=== PATIENT | male | born 1940 | race Caucasian/White ===

== ENCOUNTER 2021-04-11 11:06 | Outpatient (CLI) | payer MEDICARE, SELFPAY ==
--- NOTE | 2021-04-11 11:18 | XR_ITS ---
WS: [id number] LEFT HIP HISTORY: OSTEOARTHRITIS ,GENERALIZED, LEFT HIP PAIN COMPARISON: None available. LEFT hip: No acute fracture or dislocation. Moderate narrowing of the hip joint. Sclerosis along the superior acetabulum. Osteophyte extends laterally from the acetabulum. There is an adjacent osteophyt e extending into the soft tissue over the superior lateral LEFT femoral head which could be impinging upon the femoral head. XR/XR hip LT 2-3V wo/w pel* [id number] IMPRESSION: 1. No hip fracture. 2. Moderate osteoarthritis at the LEFT hip. Larger osteophyte from the lateral acetabulum could be impinging upon the femoral head.
== END 2021-04-11 11:07 | disposition home or self-care (01) ==
PROVIDERS: PCP Family Medicine; Visit Provider Clinical Nurse Specialist Adult Health
DX: M15.9 Polyosteoarthritis, unspecified (principal); M25.551 Pain in right hip
CPT/HCPCS: 73502

== ENCOUNTER → 2022-11-21 11:08 | Outpatient (BNVA) | payer MEDICARE, BC, SELFPAY | PROVIDERS: PCP Family Medicine; Visit Provider Family Medicine | DX: E78.5 Hyperlipidemia, unspecified (principal); N40.0 Benign prostatic hyperplasia without lower urinary tract symptoms; G50.0 Trigeminal neuralgia | CPT/HCPCS: 80053; 80061 ==

== ENCOUNTER → 2023-10-25 09:29 | Outpatient (BNVA) | payer MEDICARE, OTHER, SELFPAY | PROVIDERS: PCP Family Medicine; Visit Provider Family Medicine | DX: Z00.00 Encounter for general adult medical examination without abnormal findings (principal); G62.9 Polyneuropathy, unspecified; E03.9 Hypothyroidism, unspecified; E78.5 Hyperlipidemia, unspecified; I73.9 Peripheral vascular disease, unspecified; Z13.6 Encounter for screening for cardiovascular disorders | CPT/HCPCS: 80053; 80061; 82607; 84443; 85025 ==

== ENCOUNTER → 2023-11-19 14:18 | Outpatient (BNVA) | payer MEDICARE, OTHER, SELFPAY | PROVIDERS: PCP Family Medicine; Referring Provider Family Medicine; Visit Provider Thoracic Surgery (Cardiothoracic Vascular Surgery) | DX: I73.9 Peripheral vascular disease, unspecified (principal) | CPT/HCPCS: 99203 ==

== ENCOUNTER 2023-11-26 07:20 | Outpatient (CLI) | payer MEDICARE, OTHER, SELFPAY ==
--- NOTE | 2023-11-26 07:45 | USCV_ITS ---
Arvind Haseeb Age: 83 Gender: M : 1940 Exam Date: 11/26/2023 07:32 Ordering Phys: James Singh MD (Andy) ([email or web address] [email or web address] Technologist: BM [place] [facility] [place]: AAA Screening HISTORY: Diameter (cm) AP x Transverse x Length Velocity (cm/s) Waveform Prox Aorta: 1.21 x 1.52 x 126.40 Triphasic Mid Aorta: 1.36 x 1.38 x 154.40 Triphasic Distal Aorta: 1.24 x 1.37 x 233.60 Triphasic Right Iliac Prox: 0.86 x 1.19 x 105.90 Biphasic Left Iliac Prox: 0.95 x 1.09 x 99.60 Biphasic Stent Prox Landing x x Aneurysmal Sac Max x x Lt Lat Sac Dim Rt Lat Sac Dim Stent Dist Landing x x Right Iliac Stent x x Left Iliac Stent x x Right Renal Art Left Renal Art FINDINGS: CONCLUSIONS No evidence of abdominal aortic or bilateral iliac aneurysm. Moderate atheromatous plaque Jorge Meneses MD (Electronically Signed) Final Date: 26 November 2023 11:17 S
== END 2023-11-26 07:21 | disposition home or self-care (01) ==
LOC: RAD 07:21
PROVIDERS: PCP Family Medicine; Visit Provider Thoracic Surgery (Cardiothoracic Vascular Surgery)
DX: Z13.6 Encounter for screening for cardiovascular disorders (principal); I70.0 Atherosclerosis of aorta; Z82.49 Family history of ischemic heart disease and other diseases of the circulatory system
CPT/HCPCS: 76706

== ENCOUNTER 2024-03-05 08:32 | Outpatient (CLI) | payer MEDICARE, OTHER, SELFPAY ==
--- NOTE | 2024-03-05 | ECG_ITS ---
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
[2024-03-05 09:46] VITALS: BMI 27.3
--- NOTE | 2024-03-05 09:46 | NMCV_ITS ---
NM rodrigo perf SPECT r/s* [id number] Haseeb Samuels Age: 83 Gender: M : 1940 Exam Date: 03/05/2024 09:49 Ordering Phys: Bright Willoughby M.D ([email or web address]) Technologist: ANNA Duvall Exam Location: [facility] Indications: SOB STRESS TEST [facility] IMAGE PROTOCOL Rest/Stress 1 Exercise Day Radiopharmaceutical Dose (mCi) Administration Site Administered by Rest: Tc-99m 10.4 IV ANNA Duvall Sestamibi Stress:Tc-99m 32.9 IV ANNA Duvall Sestamibi Rest: 05-Mar-2024 60 Discovery 630 Stress: 05-Mar-2024 30 Discovery 630 Radiopharmaceutical was injected at 85 % maximum heart rate. Images obtained in supine and prone position. SPECT RESULTS Technical Quality: Good Raw Data Analysis: Normal Image Corrections: No attenuation or motion correction applied Summed Stress Score: 15 Summed Rest Score: 8 Summed Difference Score: 7 PERFUSION FINDINGS Large areas of mostly reversible perfusion defect noted in inferolateral and inferior bowser. This is consistent with small to medium sized area of prior infarct with large areas of francisco-infarct ischemia in inferior and inferolatral bowser. FUNCTIONAL RESULTS (calculated via Gated SPECT) Stress Image LV EF (%): 71 Stress EDV (mL):72 TID: 1.2 Stress ESV (mL):21 FUNCTIONAL FINDINGS: There is normal left ventricular systolic function. TID ratio is elevated. IMPRESSIONS 1. Abnormal myocardial perfusion imaging with small to medium sized area of prior infarct with large areas of francisco-infarct ischemia seen in inferior and inferolateral bowser. 2. LV systolic function is normal 3. TID ratio is elevated. This may represent multivessel coronary artery disease/subendocardial ischemia. Bright Willoughby MD (Electronically Signed) Final Date: 09 March 2024 19:49 S
[2024-03-05 10:47] VITALS: BP 141/68; PULSE 89
--- NOTE | 2024-03-05 12:00 | USCV_ITS ---
MauHaseeb lock Age: 83 Gender: M : 1940 Exam Date: 03/05/2024 08:47 Ordering Phys: Bright Willoughby M.D ([email or web address]) Technologist: Exam Location: [facility] [place] Indication: BP: 135 / 75 HR: 121 Rhythm: Sinus Technical Quality: Adequate MEASUREMENTS (Male / Female) Normal Values 2D ECHO LV Diastolic Diameter PLAX 4.3 cm 4.2 - 5.9 / 3.9 - 5.3 cm IVS Diastolic Thickness 1.1 cm 0.6 - 1.0 / 0.6 - 0.9 cm IVS Systolic Thickness 1.2 cm LVPW Diastolic Thickness 1.1 cm 0.6 - 1.0 / 0.6 - 0.9 cm LVPW Systolic Thickness 1.1 cm LVOT Diameter 2.1 cm LV Ejection Fraction 2D Teich 70.4 % LV Ejection Fraction MOD 2C 60.4 % LV Ejection Fraction 2C AL 60.5 % LA Diameter 4.3 cm RA Systolic Volume 4C AL 42.1 ml RA Systolic Volume 4C MOD 41.9 ml LA Sys Volume AL 68.8 cm cubed LA Sys Volume Index AL 35.0 cm cubed/m squared Aorta at Sinotubular Diameter 2.6 cm IVC Diameter 2.2 cm M-MODE LA Ao Ratio MM 1.2 AV Cusp Separation MM 2.0 cm DOPPLER AV Peak Velocity 132.0 cm/s LVOT Peak Velocity 103.0 cm/s AV Area Cont Eq vti 3.2 cm squared AV Area Cont Eq pk 2.7 cm squared MV Peak Velocity 109.0 cm/s MV Area PHT 3.8 cm squared Mitral E to A Ratio 0.6 PV Peak Velocity 107.0 cm/s FINDINGS Left Ventricle Normal left ventricular size, systolic function and wall thickness, with no regional wall motion abnormalities. Grade I/IV diastolic dysfunction (abnormal relaxation filling pattern), normal to mildly elevated filling pressures. Left ventricular ejection fraction is estimated at 65 %. Right Ventricle Normal right ventricular size and systolic function. Right Atrium The right atrium is normal in size. Left Atrium Mildly increased left atrial size. Mitral Valve Structurally normal mitral valve. Moderate mitral valve regurgitation. Aortic Valve Structurally normal trileaflet aortic valve. Mild aortic valve calcification. Aortic valve sclerosis without stenosis or regurgitation. Tricuspid Valve Structurally normal tricuspid valve. Pulmonic Valve Pulmonic valve not well visualized. Mild pulmonary valve regurgitation. Pericardium Normal pericardium without effusion. Aorta Normal ascending aorta dimension. IVC The inferior vena cava appears normal. CONCLUSIONS Normal left ventricular size, systolic function and wall thickness, with no regional wall motion abnormalities. Grade I/IV diastolic dysfunction (abnormal relaxation filling pattern), normal to mildly elevated filling pressures. Left ventricular ejection fraction is estimated at 65 %. Mildly increased left atrial size. Structurally normal mitral valve. Moderate mitral valve regurgitation. There are no prior echocardiogram studies to compare. Dr. Brendan Meier MD (Electronically Signed) Final Date: 05 March 2024 19:22 S
== END 2024-03-05 08:33 | disposition home or self-care (01) ==
LOC: CDL 08:33
PROVIDERS: PCP Family Medicine; Visit Provider Internal Medicine
DX: I50.30 Unspecified diastolic (congestive) heart failure (principal); I34.0 Nonrheumatic mitral (valve) insufficiency; R94.39 Abnormal result of other cardiovascular function study; R06.02 Shortness of breath
CPT/HCPCS: 36415; 78452; 93017; 93306; A9500

== ENCOUNTER 2024-03-20 09:16 | Observation (INO) | payer MEDICARE, OTHER, SELFPAY ==
[2024-03-20] VITALS (7 sets, daily range): BP systolic 133–157; BP diastolic 65–82; PULSE 62–84; RESP 14–20; TEMP 36.4–36.5; O2SAT 94–96; BMI 26.6
[2024-03-20] MEDS: diphenhydrAMINE 50 mg Capsule PO (06:15)
[2024-03-20] MEDS: aspirin 325 mg Tablet PO (06:15)
[2024-03-20 06:22] LABS: Basophils # 0.1 10^3/uL (0.0-0.1); Basophils % 0.7 %; Eosinophils # 0.4 10^3/uL (0.0-0.8); Eosinophils % 4.5 %; Hematocrit 40.6 % (37-53); Lymphocytes # 2.8 10^3/uL (0.8-4.8); Lymphocytes % 31.8 %; Mean Corpuscular HGB Conc 32.8 g/dL (30-55); Mean Corpuscular Volume 91.6 fl (82-101); Mean Platelet Volume 9.9 fL (7.4-10.4); Monocytes # 0.6 10^3/uL (0.2-0.9); Monocytes % 7.2 %; Neutrophils # 4.93 10^3/uL (1.8-7.7); Neutrophils % 55.2 %; Nucleated Red Blood Cells % 0 %; Platelet Count 183 10^3/cmm (157-399); Red Blood Count 4.43 10^6/uL (3.85-5.65); Red Cell Distribution Width 14.3 % (12.1-15.1); White Blood Count 8.92 10^3/uL (3.29-11.43)
[2024-03-20 06:38] LABS: Anion Gap 16.4 (5-19); Blood Urea Nitrogen 20 mg/dL (8-23); Carbon Dioxide 24 mmol/L (22-29); Chloride 106 mmol/L (98-107); Creatinine Clr Calc Pharmacy 55.6047; Glucose 140 mg/dL (65-115); Osmolality Calculated 299 mOsm/kg (285-295); Potassium 4.4 mmol/L (3.5-5.1); Sodium 142 mmol/L (136-145)
--- NOTE | 2024-03-20 07:00 | XACV_ITS ---
Exam Room: 2 Ht: 173 cm Wt: 79 kg BSA: 1.97 m2 Gender: Male : 1940 Any Known Allergies: No known allergies Exam Priority: Routine Procedure(s): Procedure Description: Diagnostic procedure Procedure Description: Left Heart Catheterization Procedure Description: Peripheral Cath Diagnostic Procedure Procedure Description: Abdominal aortic angiography Procedure Description: Coronary Angiography Diagnostic Cath Status: Elective Diagnostic Findings * INDICATION: 83 year man old with possibly history of hyperlipidemia who has been having worsening bilateral arm discomfort with exertion. Feels heavy and has to rest. Stress test is showing large area of francisco-infarct ischemia in inferior and inferolateral bowser. TID ratio is also elevated. Given these findings and worsening of symptoms, coronary angiogram with possible PCI. * Left Anterior Descending has diffuse moderate luminal irregularities. Proximal vessel has 40% stenosis. * Proximal Right Coronary Artery: subtotally occluded with left to right collaterals. * Proximal Circumflex to Mid Circumflex: severe 90% stenosis, RACHEL: 3 flow. Distal left circumflex artery after take off of OM 2 has 90% stenosis. * Coronary angiography shows co-dominance. * Left Main: significant 80% stenosis, RACHEL: 3 flow. Upper Extremity Diagnostic Findings Has significant 80% stenosis at junction of right brachial/axillary artery. Lower Extremity Diagnostic Findings Distal abdominal aorta is patent. Bilateral common, and external iliac arteries are patent. Patent common femoral arteries. Conclusions Severe multivessel coronary artery disease including ostial/proximal left main artery stenosis. Recommendations Referral to tertiary care facility for heart team discussion for CABG vs high risk intervention of left main artery and left circumflex artery. Pressures Phase:Rest AO : 146 / 60 ( 91 ) @ 8:47:00 AM 108 / 59 ( 81 ) @ 8:48:00 AM 147 / 63 ( 100 ) @ 8:55:00 AM 146 / 63 ( 99 ) @ 8:55:00 AM LV : 124 / 2 / 16 @ 8:55:00 AM 150 / -5 / 19 @ 8:55:00 AM Valves Phase:DefaultPhase AV : 2.0 @ 8:07:56 AM AV Mean Gradient: 0.0 @ 8:07:56 AM Hemodynamic Data Phase:Rest AO : 146.0 / 60.0 ( 91.0 ) @ 8:47:00 AM 108.0 / 59.0 ( 81.0 ) @ 8:48:00 AM 147.0 / 63.0 ( 100.0 ) @ 8:55:00 AM 146.0 / 63.0 ( 99.0 ) @ 8:55:00 AM Clinical Evaluation EBL: 5mL-10mL Procedural Details Pre-Procedure Time Out. Identified patient by full name and date of as verbalized by the patient/guarantor. Does the consent match the physician's order: Yes. Accurate & Complete Informed Consent: Yes. Inpatient/Outpatient History & Physical on Chart: Yes. If H&P is completed, is and addenduem needed: Yes; If yes, is the addendum complete: Yes. Visualize and Verify Site with Patient/Guarantor: N/A. Relevant Radiology Images available: Yes. Pre-op teaching completed and patient verbalized understanding. The risks, benefits, and alternatives of sedation and/or procedure were discussed by physician. The patient agrees to continue. Procedure started. Current Diagnosis : Chest Pain. HA Clinical Fraility Score: 3: Managing Well. Radiological Technician Indications: Worsening Angina. Chest Pain Symptom Assessment: Typical Angina Symptoms. Correct patient, site and procedure confirmed by cath team. Current diagnosis: Chest Pain. PERRLA. 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 Lungs clear x 5 lobes. IV Site on Arrival: 20 gauge in the left anticubital. IV Fluids: 0.9% NaCl at KVO. 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 Pre Procedural Pulses: bilateral dorsalis pedis was 2+. Pre Procedural Pulses: bilateral posterior tibial was Doppled. Pre Procedural Pulses: bilateral radial was 2+. Oxygen started at 2liters/min via nasal canula. right groin was prepped with chloroprep then draped in the usual sterile fashion. right radial was prepped with chloroprep then draped in the usual sterile fashion. Physician arrived. Baseline sample Acquired. HR: 70 BPM. Physician scrubbed in. Immediate Pre-Procedure Time Out. Correct Patient: Yes; Correct Procedure: Yes; Correct Site: Yes; Correct Patient Position: Yes; Correct Supplies: Yes; Dried Flammable Prep: Yes; Blood Products Available: N/A;. Lidocaine 1% infiltrated to the right radial. Arterial access obtained. A 5 new zealander TIG catheter in over wire. Wire removed. Contrast hand injected through the catheter. Catheter removed over the standard wire. Lidocaine 1% infiltrated to the right groin. Arterial access obtained with micropuncture set. A 5 new zealander JL4 catheter in over wire. Multiple views taken of left coronary artery. Catheter removed over the standard wire. A 5 new zealander JR4 catheter in over wire. EDP Sample taken: LV 124/2,16; HR: 76 BPM; SpO2: 97%. Pullback taken: LV 150/-6,19; AO 147/63(100); Mean: 0mmHg, Peak to Peak: 2mmHg, SEP: 7sec/min; HR: 70 BPM; SpO2: 97%. Multiple views taken of right coronary artery. Catheter removed over the standard wire. A 5 new zealander Angled Pig catheter in over wire. Abdominal aortogram performed in AP @ 10 mL/sec for a total of 30 mL. Catheter removed over the standard wire. A Right femoral angiogram was performed to determine safe placement of closure device. A TR Band was successful obtaining hemostatsis at the Right Radial artery insertion site. A Mynx was successful obtaining hemostatsis at the Right Femoral artery insertion site. Post Procedure: Pulses reassessed and unchanged. PERRLA. 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 No VTE prophylaxis required. Medication's Wasted: Other = Fentanyl 50 mcg. Medication's Wasted: Heparin = 1000 units. Medication's Wasted: Nitro = 49.8 mcg. Medication's Wasted: Lidocaine 1% = 8 mL. Total IV fluids: 50 mL. Post-op diagnosis: CAD. Complications: None. Estimated blood loss: 5mL-10mL. Responsiveness - Normal response to verbal stimuli; alert and oriented, PERRLA. Vital chart was stopped. Airway - Unaffected, no intervention required; spontaneous ventilation. Circulation: W/N/L, pulses unchanged. Nausea/Vomiting: No. Procedure completed. Patient transferred by bed to CPRU. Access Site Site: Right Radial artery Sheath Size: 6 Fr Hemostasis Method: TR Band Hemostasis Success: Successful Site: Right Femoral artery Sheath Size: 6 Fr Hemostasis Method: Mynx Hemostasis Success: Successful Procedure Medications Start: 7:27 AM Stop: 7:27 AM Medication: Versed Amount: 1 mg Route: I.V. Start: 7:27 AM Stop: 7:27 AM Medication: Fentanyl Amount: 50 mcg Route: I.V. Start: 7:36 AM Stop: 7:36 AM Medication: Nitrogylcerin Amount: 200 mcg Route: I.A. Start: 7:59 AM Stop: 7:59 AM Medication: Versed Amount: 1 mg Route: I.V. I, the attending physician, have reviewed and verified all procedure medications. Yes, all medications given per verbal order History/Risk Factors Hypertension: No Dyslipidemia: Yes Peripheral Arterial Disease (PAD): No Myocardial Infarction (TN): No Obesity: No Tobacco Use: Former Prior Interventions PCI: No CABG: No Valve Surgery: No Report Signatures Finalized by Bright Willoughby MD on 04/02/2024 05:11 PM
--- NOTE | 2024-03-20 07:26 | P.HP_ITS ---
Same Day Surgery H&P Indication for Procedure/HPI DATE OF PROCEDURE: March 20, 2024 CHIEF COMPLAINT/INDICATIONFOR SURGICAL PROCEDURE: New onset CCS class 2-3 angina/abnormal stress test PREOP DIAGNOSIS: New onset CCS Class 2/3 angina/ abnormal stress test PLANNED PROCEDURE: Operation Date: 03/20/24 07:00 Proposed Procedures p Cardiac Catheterization - [facility] w/wo LV & Coros(Left) - Bright Willoughby M.D Possible percutaneous coronary intervention 83 year man old with possibly history of hyperlipidemia who has been having w orsening bilateral arm discomfort with exertion. Feels heavy and has to rest. Stress test is showing large area of francisco-infarct ischemia in inferior and inferolateral bowser. TID ratio is also elevated. Given these findings and worsening of symptoms, coronary angiogram with possible PCI. Medications/Allergies* Home Medications Medication Instructions Recorded Confirmed Type aspirin 81 mg tablet,delayed 81 mg PO DAILY 03/19/24 03/19/24 History release Allergies/Adverse Reactions Allergy/AdvReac Type Severity Reaction Status Date / Time No Known Allergies Allergy Verified 03/19/24 11:20 Current Medications: Generic Name Dose Route Start Last Admin Trade Name Freq PRN Reason Stop Dose Admin Sodium Chloride 1,000 mls @ 50 mls/hr 03/20/24 06:00 03/20/24 06:28 Sodium Chloride 0.9% IV 03/21/24 01:59 Not Given .Q20H ONE Pertinent History/Comorbid Conditions* Family History (Updated 11/19/23 @ 15:29 by Kathy Ballard LPN) CAD (coronary artery disease) Mother Sister Cancer Father Denies family history of Diabetes Social History Smoking and tobacco/nicotine status: former use of tobacco/nicotine Quit status (tobacco/nicotine): has quit using Year quit tobacco: 1973 Alcohol intake: never Substance/Drug Use: never Pertinent Exam Findings alert, oriented x 3, clear to auscultation bilaterally and regular rate & rhythm Conscious Sedation Assessment PATIENT ASSESSED PRIOR TO SEDATION, WITH NO CHANGE NOTED: Yes AIRWAY EVAL/ANESTHESIA PLAN: normal airway, ASA III, Local Anesthesia, Risks, benefits & alternatives of sedation and/or procedure discussed and Patient agrees to continue as planned ADDITIONAL INFORMATION: Moderate sedation Recommendations Surgery/Procedure today (Left heart cath with possible percuteneous coronary intervention) Coding Level of Care Code Acute Code for Chg Fwd
--- NOTE | 2024-03-20 09:28 | PC.NURSE ---
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
--- NOTE | 2024-03-20 13:24 | PC.NURSE ---
Patient's right radial TR-band, air is removed as follows: 2ml's at 1035, 2ml's at 1110, 2ml's at 1125, 2ml's at 1155, 2ml's at 1230, 2ml's at 1245, 2ml's at 1319. TR-band is removed at 1335. A dressing of 2x2 and tegaderm is applied. No hematoma noted. Patient tolerated well.
== END 2024-03-20 15:13 | disposition home or self-care (01) ==
LOC: CSU 09:16
PROVIDERS: Admitting Provider Internal Medicine; PCP Family Medicine; Visit Provider Internal Medicine
DX: I25.10 Atherosclerotic heart disease of native coronary artery without angina pectoris (principal); E78.5 Hyperlipidemia, unspecified; Z87.891 Personal history of nicotine dependence; Z79.82 Long term (current) use of aspirin; Z82.49 Family history of ischemic heart disease and other diseases of the circulatory system
CPT/HCPCS: 36415; 75625; 80048; 85025; 93458; 96374; 96375; 99152; 99153; C1760; C1769; C1887; C1894; G0269; G0378; J1644; J2250; J3010; J3490; J7030; Q0163; Q9967

== ENCOUNTER 2024-05-12 13:55 | Outpatient (CLI) | payer MEDICARE, OTHER, SELFPAY ==
[2024-05-12 15:00] LABS: Anion Gap 14.5 (5-19); Blood Urea Nitrogen 20 mg/dL (8-23); Calcium 8.6 mg/dL (8.5-10.5); Carbon Dioxide 25 mmol/L (22-29); Chloride 103 mmol/L (98-107); Glucose 118 mg/dL (65-115); Osmolality Calculated 290 mOsm/kg (285-295); Potassium 4.5 mmol/L (3.5-5.1); Sodium 138 mmol/L (136-145)
== END 2024-05-12 13:56 | disposition home or self-care (01) ==
LOC: LAB 13:56
PROVIDERS: PCP Family Medicine; Visit Provider Family Medicine
DX: I25.10 Atherosclerotic heart disease of native coronary artery without angina pectoris (principal)
CPT/HCPCS: 80048

== ENCOUNTER → 2024-05-26 12:56 | Outpatient (BNVA) | payer MEDICARE, OTHER, SELFPAY | PROVIDERS: PCP Family Medicine; Visit Provider Family Medicine | DX: N28.9 Disorder of kidney and ureter, unspecified (principal) | CPT/HCPCS: 80048 ==

== ENCOUNTER → 2024-06-30 10:07 | Outpatient (BNVA) | payer MEDICARE, OTHER, SELFPAY | PROVIDERS: PCP Family Medicine; Visit Provider Podiatrist Foot & Ankle Surgery | DX: I73.9 Peripheral vascular disease, unspecified (principal); M21.611 Bunion of right foot; M21.621 Bunionette of right foot | CPT/HCPCS: 99203 ==

== ENCOUNTER → 2024-08-12 14:59 | Outpatient (BNVA) | payer MEDICARE, OTHER, SELFPAY | PROVIDERS: PCP Family Medicine; Visit Provider Family Medicine | DX: I25.10 Atherosclerotic heart disease of native coronary artery without angina pectoris (principal); E55.9 Vitamin D deficiency, unspecified; I73.9 Peripheral vascular disease, unspecified; E78.5 Hyperlipidemia, unspecified; N19 Unspecified kidney failure; G62.9 Polyneuropathy, unspecified; R53.1 Weakness; E03.9 Hypothyroidism, unspecified | CPT/HCPCS: 80053; 80061; 82607; 82652; 84443; 85025 ==

== ENCOUNTER 2024-08-30 22:44 | Emergency (ER) | payer MEDICARE, OTHER, SELFPAY ==
[2024-08-30 22:52] VITALS: BP 180/59; PULSE 67; RESP 18; TEMP 36.7; O2SAT 97; BMI 25.4
--- NOTE | 2024-08-30 23:01 | CTR_ITS ---
PROCEDURE INFORMATION: Exam: CT Head Without Contrast Exam date and time: 08/30/2024 11:12 PM Age: 83 years old Clinical indication: Injury or trauma; Blunt trauma (contusions or hematomas); Patient HX: Patient has sustained two falls in the last three days. Contusion to RT orbit with hematoma to occipital. Anticoagulated. TECHNIQUE: Imaging protocol: Computed tomography of the head without contrast. Radiation optimization: All CT scans at this facility use at least one of these dose optimization techniques: automated exposure control; mA and/or kV adjustment per patient size (includes targeted exams where dose is matched to clinical indication); or iterative reconstruction. COMPARISON: No relevant prior studies available. RADIATION DOSE METRICS: Total DLP (mGy-cm): 1037.31 FINDINGS: Brain: Thin subdural hematoma along the left tentorial leaflet measuring up to 4 mm. Underlying brain parenchymal atrophy. No additional areas of intracranial hemorrhage. Mass effect or midline shift. Sequela of chronic microvascular changes involving the white matter. No midline shift. Cerebral ventricles: No ventriculomegaly. Paranasal sinuses: Visualized sinuses are unremarkable. No fluid levels. Mastoid air cells: Visualized mastoid air cells are well aerated. Bones: No underlying linear or depressed skull fracture. Soft tissues: Posterior scalp hematoma. CT/CT head wo con* [id number] IMPRESSION: Thin subdural hematoma along the left tentorial leaflet.
--- NOTE | 2024-08-30 23:08 | CTR_ITS ---
PROCEDURE INFORMATION: Exam: CT Maxillofacial Without Contrast Exam date and time: 08/30/2024 11:15 PM Age: 83 years old Clinical indication: Injury or trauma; Blunt trauma (contusions or hematomas); Orbit/periorbital; Right; Patient HX: Patient has sustained two falls in the last three days. Contusion to RT orbit with hematoma to occipital. Anticoagulated. TECHNIQUE: Imaging protocol: Computed tomography of the face without contrast. Radiation optimization: All CT scans at this facility use at least one of these dose optimization techniques: automated exposure control; mA and/or kV adjustment per patient size (includes targeted exams where dose is matched to clinical indication); or iterative reconstruction. COMPARISON: CT head wo con* [id number] 08/30/2024 11:12 PM RADIATION DOSE METRICS: Total DLP (mGy-cm): 543.2 FINDINGS: Paranasal sinuses: No air-fluid levels. Orbital cavities: Intraorbital injury. Teeth: The patient has dentures. Mild right periorbital soft tissue swelling. Bones: No acute displaced maxillofacial bone fractures. Soft tissues: See Teeth finding. CT/CT facial bones wo con* [id number] IMPRESSION: No acute maxillofacial bone fractures.
--- NOTE | 2024-08-30 23:58 | ED_ITS ---
Documented by User: MICHAEL Reyna 08/31/24 01:09 HPI - Fall 2 General: Chief Complaint: Fall Stated Complaint: fall face /head injury Time Seen by Provider: 08/30/24 23:00 History of Present Illness: Patient is an 83-year-old man that presents to the emergency department with complaints of occipital head pain after fall from standing. Patient reports he had 2 falls in the last several days. he was entering his laundry room when he tripped on a step falling forward and striking his right forehead/brow on the ground. He denies loss of consciousness. As a result he has developed periorbital ecchymosis. Today he was walking in to the laundry room and turned and lost his footing. He fell backwards striking his head. Again no loss of consciousness and denies feeling dazed. He is on dual antiplatelet therapy?aspirin and Plavix. Patient has significant cardiac history. He also has a history of hypothyroidism, hypertension, hyperlipidemia, BPH and GERD. Related Data Home Medications Medication Instructions Recorded Confirmed aspirin 81 mg tablet,delayed 81 mg PO DAILY 03/19/24 06/30/24 release Previous Rx's Medication Instructions Recorded tamsulosin 0.4 mg capsule 0.4 mg PO DAILY #1 cap 11/21/22 metoprolol tartrate 25 mg tablet 25 mg PO BID #120 tabs 03/20/24 levofloxacin 500 mg tablet 500 mg PO DAILY #7 tabs 05/09/24 atorvastatin 40 mg tablet See Rx Instructions .Route 05/13/24 .COMPLEX #1 tab clopidogrel 75 mg tablet 75 mg PO DAILY #1 tab 05/13/24 docusate sodium 100 mg capsule 100 mg PO BID #1 cap 05/13/24 (Dulcolax Stool Softener (docusate)) ondansetron HCl 4 mg tablet 4 mg PO Q6H PRN nausea and 05/13/24 vomiting #1 tab pantoprazole 40 mg tablet,delayed 40 mg PO DAILY #1 tab 05/13/24 release amiodarone 200 mg tablet 200 mg PO DAILY #1 tab 05/26/24 Allergies Allergy/AdvReac Type Severity Reaction Status Date / Time No Known Allergies Allergy Verified 08/12/24 14:11 Review of Systems 2 General: Reports: 10 or more systems reviewed and unremarkable except in HPI and below PFSH ED 2 PFSH: Family History Mother CAD (coronary artery disease) Sister CAD (coronary artery disease) Father Cancer Denies family history of Diabetes Social History Smoking and tobacco/nicotine status: former use of tobacco/nicotine Quit status (tobacco/nicotine): has quit using Year quit tobacco: 1973 Alcohol intake: never Substance/Drug Use: never Physical Exam 2 Const: COMMON NORMALS: no acute distress, patient oriented x3 and alert G ENERAL APPEARANCE: cooperative ORIENTATION/CONSCIOUSNESS: Yes awake, Yes oriented to person, Yes oriented to place and Yes oriented to time HENMT: COMMON NORMALS: normocephalic and atraumatic HEAD & SCALP: n ormocephalic and atraumatic HEAD IMAGES: 1. Abrasion contusion 2. Periorbital ecchymosis 3. scalp wound. FACE & SINUS: normal facial exam MOUTH: Normal oral and palatal mucosa present THROAT: posterior oropharynx normal Eye: COMMON NORMALS: Equal, round and reactive pupils present, EOMs intact bilaterally, conjunctivae normal and no scleral icterus GENERAL EYE: a ppearance normal, both eyes and all related structures ALIGNMENT: Yes alignment normal PERIORBITAL: periorbital findings abnormal positive right periorbital swelling, periorbital tenderness and periorbital ecchymosis C ONJUNCTIVA: Yes conjunctivae normal PUPIL: Yes Equal, round and reactive pupils present Neck/C-Spine: COMMON NORMALS: full ROM GENERAL: Yes normal visual inspection OTHER: Nontender to palpation along the midline cervical spine or trapezius into the shoulders. Denies numbness or tingling in upper extremities Denies pain in upper extremities. He has generalized but no focal weakness in upper extremities. 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 Lymph: LYMPHATIC: no lymphadenopathy noted Chest: COMMONS NORMALS: normal inspection of the chest Breast/axilla inspection: Yes no chest deformity, asymmetry, normal contours, no nodules, masses, tenderness Resp: COMMON NORMALS: normal respiratory effort, No retractions and No use of accessory muscles EFFORT & INSPECTION: Yes able to speak in complete sentences and Yes symmetric chest movement Cardio: COMMON NORMALS: regular rate and Peripheral pulses 2+ throughout R ATE: regular rate PERIPHERAL PULSES: Peripheral pulses 2+ throughout Back/Pelvis: COMMON NORMALS: thoracic and lumbar spine normal to inspection, no thoracic nor lumbar tenderness, thoraco-lumbar ROM normal and straight leg raise negative bilaterally Extremity: COMMON NORMALS: normal to inspection GENERAL: Yes normal exam except as noted Neuro: COMMON NORMALS: patient oriented x3 SENSORIUM/ORIENTATION: Yes alert, Yes oriented to person, Yes oriented to place and Yes oriented to time CRANIAL NERVES: Yes CN normal except as noted Psych: COMMON NORMALS: mental status grossly normal, Normal thought process present, cooperative, activity/motor behavior normal, denies homicidal ideation and denies suicidal ideation THOUGHT PROCESS: Normal thought process present Skin: COMMON NORMALS: no rashes or lesions noted and turgor normal GENERAL SKIN EXAM: no rashes or lesions noted and turgor normal Course 2 Vital Signs: Vital signs: Vital Signs Temperature 98.1 F 08/30/24 22:52 Pulse Rate 62 08/31/24 00:41 Respiratory Rate 18 08/31/24 00:41 Blood Pressure 178/59 08/31/24 00:41 Pulse Oximetry 95 08/31/24 00:41 Oxygen Delivery Me thod Room Air 08/31/24 00:41 MDM - Fall Medical Decision Making Patient is a 83-year-old man that presents to the emergency department with 2 falls. 1 night in which he struck his right brow on the ground. The other tonight when he lost his footing and fell backwards striking the back of his head on the step. Patient underwent CT imaging of his face and head. Imaging of his head reveals a thin left tentorial subdural hematoma. CT facial bones negative. His wound was explored but found to be superficial abrasions. He does have a hematoma to the back of his head as well as periorbital ecchymosis and abrasions to his right brow. Patient has preference for [facility] facility. I have transitioned care to Dr. Mera for transfer. Lab Data Radiology Impressions Head CT 08/30/24 23:01 IMPRESSION: Thin subdural hematoma along the left tentorial leaflet. ADDENDUM: 08/31/24 0015 THIS REPORT CONTAINS FINDINGS THAT MAY BE CRITICAL TO PATIENT CARE. The findings were verbally communicated via telephone conference with Magdiel Mera at 12:14 AM [employer] on 08/31/2024. The findings were acknowledged and understood. Face CT 08/30/24 23:08 IMPRESSION: No acute maxillofacial bone fractures. All radiology interpretation(s) finalized by discharge Discharge Plan Discharge Patient Disposition: Xfer Short-Term Hosp Clinical Impression: Acute subdural hematoma, Contusion of face Traumatic intracranial subdural hematoma Qualifiers: Encounter type: initial encounter Loss of consciousness presence/duration: w ithout LOC Qualified Code(s): S06.5X0A - Traumatic subdural hemorrhage without loss of consciousness, initial encounter Condition: Stable Referrals: Gino Gutierrez DO [Primary Care Provider] - Coding Level of Care Code ED Bail Bonding Agent for Chg Fwd Documented by User: Magdiel Mera DO 08/31/24 00:27 HPI - Fall 2 General: Chief Complaint: Fall Stated Complaint: fall face /head injury Time Seen by Provider: 08/30/24 23:00 Related Data Home Medications Medication Instructions Recorded Confirmed aspirin 81 mg tablet,delayed 81 mg PO DAILY 03/19/24 06/30/24 release Previous Rx's Medication Instructions Recorded tamsulosin 0.4 mg capsule 0.4 mg PO DAILY #1 cap 11/21/22 metoprolol tartrate 25 mg tablet 25 mg PO BID #120 tabs 03/20/24 levofloxacin 500 mg tablet 500 mg PO DAILY #7 tabs 05/09/24 atorvastatin 40 mg tablet See Rx Instructions .Route 05/13/24 .COMPLEX #1 tab clopidogrel 75 mg tablet 75 mg PO DAILY #1 tab 05/13/24 docusate sodium 100 mg capsule 100 mg PO BID #1 cap 05/13/24 (Dulcolax Stool Softener (docusate)) ondansetron HCl 4 mg tablet 4 mg PO Q6H PRN nausea and 05/13/24 vomiting #1 tab pantoprazole 40 mg tablet,delayed 40 mg PO DAILY #1 tab 05/13/24 release amiodarone 200 mg tablet 200 mg PO DAILY #1 tab 05/26/24 Allergies Allergy/AdvReac Type Severity Reaction Status Date / Time No Known Allergies Allergy Verified 08/12/24 14:11 PFS ED 2 PFS: Family History Mother CAD (coronary artery disease) Sister CAD (coronary artery disease) Father Cancer Denies family history of Diabetes Social History Smoking and tobacco/nicotine status: former use of tobacco/nicotine Quit status (tobacco/nicotine): has quit using Year quit tobacco: 1973 Alcohol intake: never Substance/Drug Use: never Physical Exam 2 HENMT: HEAD IMAGES: 1. Abrasion contusion 2. Periorbital ecchymosis 3. scalp wound. Course 2 Vital Signs: Vital signs: Vital Signs Temperature 98.1 F 08/30/24 22:52 Pulse Rate 62 08/31/24 00:41 Respiratory Rate 18 08/31/24 00:41 Blood Pressure 178/59 08/31/24 00:41 Pulse Oximetry 95 08/31/24 00:41 Oxygen Delivery Me thod Room Air 08/31/24 00:41 MDM - Fall Medical Decision Making Patient is a 83-year-old man that presents to the emergency department with 2 falls. 1 night in which he struck his right brow on the ground. The other tonight when he lost his footing and fell backwards striking the back of his head on the step. Patient underwent CT imaging of his face and head. Imaging of his head reveals a thin left tentorial subdural hematoma. CT facial bones negative. His wound was explored but found to be superficial abrasions. He does have a hematoma to the back of his head as well as periorbital ecchymosis and abrasions to his right brow. Patient has preference for [facility] facility. Patient care transferred over to myself, Lilia Romero was called, the ER doc was notified, and agreed to take the patient in transfer. Lab Data Radiology Impressions Head CT 08/30/24 23:01 IMPRESSION: Thin subdural hematoma along the left tentorial leaflet. ADDENDUM: 08/31/24 0015 THIS REPORT CONTAINS FINDINGS THAT MAY BE CRITICAL TO PATIENT CARE. The findings were verbally communicated via telephone conference with Magdiel Mera at 12:14 AM [employer] on 08/31/2024. The findings were acknowledged and understood. Face CT 08/30/24 23:08 IMPRESSION: No acute maxillofacial bone fractures. Discharge Plan Discharge Patient Disposition: Xfer Short-Term Hosp Clinical Impression: Acute subdural hematoma, Contusion of face Traumatic intracranial subdural hematoma Qualifiers: Encounter type: initial encounter Loss of consciousness presence/duration: w ithout LOC Qualified Code(s): S06.5X0A - Traumatic subdural hemorrhage without loss of consciousness, initial encounter Condition: Stable Referrals: Gino Gutierrez, DO [Primary Care Provider] - Coding Level of Care Code ED Bail Bonding Agent for Cyndi Joyner
[2024-08-31 00:15] VITALS: BP 143/67; PULSE 64; RESP 16; O2SAT 96
[2024-08-31] MEDS: tetanus-dipt-pertussis 0.5 mL SDV IM (00:22)
[2024-08-31 00:34] VITALS: BP 178/59; PULSE 63; RESP 18; O2SAT 95
[2024-08-31 00:41] VITALS: BP 178/59; PULSE 62; RESP 18; O2SAT 95
== END 2024-08-31 00:51 | disposition short-term general hospital (02) ==
PROVIDERS: Emergency Provider Nurse Practitioner; PCP Family Medicine
DX: S06.5X0A Traumatic subdural hemorrhage without loss of consciousness, initial encounter (principal); S00.83XA Contusion of other part of head, initial encounter; Z87.891 Personal history of nicotine dependence; W01.0XXA Fall on same level from slipping, tripping and stumbling without subsequent striking against object, initial encounter
CPT/HCPCS: 70450; 70486; 90471; 90715; 99284

== ENCOUNTER → 2025-02-05 08:37 | Outpatient (BNVA) | payer MEDICARE, OTHER, SELFPAY | PROVIDERS: PCP Family Medicine; Visit Provider Family Medicine | DX: I25.10 Atherosclerotic heart disease of native coronary artery without angina pectoris (principal); E78.5 Hyperlipidemia, unspecified; N19 Unspecified kidney failure; N40.0 Benign prostatic hyperplasia without lower urinary tract symptoms; G62.9 Polyneuropathy, unspecified; R53.1 Weakness; E03.9 Hypothyroidism, unspecified | CPT/HCPCS: 80053; 80061; 82306; 82607; 84443; 85025 ==

== ENCOUNTER → 2025-04-02 08:53 | Outpatient (BNVA) | payer MEDICARE, OTHER, SELFPAY | PROVIDERS: PCP Family Medicine; Visit Provider Podiatrist Foot & Ankle Surgery | DX: I73.9 Peripheral vascular disease, unspecified (principal); L60.3 Nail dystrophy; L60.8 Other nail disorders; M21.611 Bunion of right foot; M21.621 Bunionette of right foot; L84 Corns and callosities | CPT/HCPCS: 11055; 11721 ==

== ENCOUNTER → 2025-06-04 09:38 | Outpatient (BNVA) | payer MEDICARE, OTHER, SELFPAY | PROVIDERS: PCP Family Medicine; Visit Provider Podiatrist Foot & Ankle Surgery | DX: I73.9 Peripheral vascular disease, unspecified (principal); L60.3 Nail dystrophy; L60.8 Other nail disorders; M21.611 Bunion of right foot; M21.621 Bunionette of right foot | CPT/HCPCS: 11721 ==

== ENCOUNTER → 2025-08-13 09:25 | Outpatient (BNVA) | payer MEDICARE, OTHER, SELFPAY | PROVIDERS: PCP Family Medicine; Visit Provider Podiatrist Foot & Ankle Surgery | DX: L60.8 Other nail disorders (principal); L60.3 Nail dystrophy; I73.9 Peripheral vascular disease, unspecified; M21.611 Bunion of right foot; M21.621 Bunionette of right foot | CPT/HCPCS: 11721 ==